=== PATIENT | female | born 1955 | race Caucasian/White ===

== ENCOUNTER 2019-04-01 19:13 | Emergency (ER) | payer BC, OTHER ==
--- NOTE | 2019-04-01 19:21 | EDM.PDOC ---
ED HPI GENERAL MEDICAL PROBLEM - General Stated Complaint: UNK Time Seen by Provider: 04/01/19 19:21 Source of Information: Reports: Patient History Limitations: Reports: No Limitations - History of Present Illness INITIAL COMMENTS - FREE TEXT/NARRATIVE: this patient comes emergency department today with complaints of left lower extremity pain. For the past week she has had swelling tightness tenderness and pain primarily the proximal aspect of her medial left calf. Just below her knee. She was seen in the clinic and sent over for an ultrasound for possible DVT and was seen in the emergency department following her clinic visit as there was no one to follow-up with her results. She's had no history of bleeding or clotting disorders for herself or her family. She does not smoke she is not on control. She has not had any recent procedures or long stents of travel in a vehicle or airplane concerning for increasing her risk for a DVT. She has had no injury fall or damage to left lower extremity. She does have some chronic left knee pain and joint effusion and does need a knee replacement. She denies any paresthesias to her lower extremity.no chest pain or shortness of breath or difficulty breathing. No syncope or palpitations. - Related Data Allergies Allergy/AdvReac Type Severity Reaction Status Date / Time No Known Allergies Allergy Verified 04/01/19 19:22 Home Meds: Home Meds Aspirin 81 mg PO ASDIRECTED 09/30/14 [History] Cholecalciferol (Vitamin D3) [Vitamin D-3] 2,000 unit PO DAILY 09/30/14 [History ] Past Medical History Other HEENT History: WEARS GLASSES Other Cardiovascular History: 5 years SINCE STROKE Other Musculoskeletal History: BUNION BILAT FEET Other Dermatologic History: BILAT LE & FEET - Past Surgical History Other Cardiovascular Surgeries/Procedures: PFO REPAIR Other Female Surgeries/Procedures: SLING OPERATION; CYSTOSCOPY Other Musculoskeletal Surgeries/Procedures:: BUNIONECTOMY LEFT FOOT; REPIAR OF HAMMER TOE LEFT FOOT ED ROS GENERAL - Review of Systems Review Of Systems: Comprehensive ROS is negative, except as noted in HPI. ED EXAM, GENERAL - Physical Exam Exam: See Below Exam Limited By: No Limitations General Appearance: Alert, WD/WN, No Apparent Distress Respiratory/Chest: No Respiratory Distress, Lungs Clear, Normal Breath Sounds Cardiovascular: Normal Peripheral Pulses, Regular Rate, Rhythm Peripheral Pulses: 2+: Popliteal (L), Popliteal (R), Posterior Tibial (L), Posterior Tibial (R), Dorsalis Pedis (L), Dorsalis Pedis (R) Extremities: Other (examination the left lower extremity shows a very swollen warm erythematous left proximal calf. There is also some superficial varicose veins that are unremarkable. There is no palpable cords. There is no breaks in the skin.) Neurological: Alert, Oriented Psychiatric: Normal Affect, Normal Mood Skin Exam: Warm, Dry, Intact Course - Vital Signs Last Recorded V/S: Last Vital Signs Temp 36.4 C 04/01/19 19:22 Pulse 69 04/01/19 20:16 Resp 18 04/01/19 20:16 BP 139/92 H 04/01/19 20:16 Pulse Ox 97 04/01/19 20:16 - Orders/Labs/Meds Labs: Laboratory Tests 04/01/19 04/01/19 04/01/19 Range/Units 19:31 19:31 19:31 WBC 9.1 (5.0-10.0) 10^3/uL RBC 4.17 L (4.2-5.4) 10^6/uL Hgb 12.9 (12.0-16.0) g/dL Hct 37.9 (37.0-47.0) % MCV 90.9 (80-100) fL MCH 30.9 (27.0-34.0) pg MCHC 34.0 (33.0-35.0) g/dL Plt Count 177 (150-450) 10^3/uL Neut % (Auto) 69.3 (42.2-75.2) % Lymph % (Auto) 18.8 L (20.5-50.1) % Kerr % (Auto) 9.6 H (2-8) % Eos % (Auto) 2.1 (1.0-3.0) % Baso % (Auto) 0.2 (0.0-1.0) % PT 10.2 (9.0-12.0) SEC INR 1.0 (0.9-1.2) APTT 25.0 (22.0-34.0) SEC Sodium 138 (135-145) mmol/L Potassium 4.4 (3.6-5.0) mmol/L Chloride 103 (101-111) mmol/L Carbon Dioxide 28.0 (21.0-31.0) mmol/L Anion Gap 11.4 BUN 23 H (7-18) mg/dL Creatinine 1.0 (0.6-1.3) mg/dL Est Cr Clr Drug Dosing 52.50 mL/min Estimated GFR (MDRD) 56 Glucose 96 (74-105) mg/dL Calcium 9.4 (8.4-10.2) mg/dl Meds: Medications Discontinued Medications Generic Name Dose Route Start Last Admin Trade Name Bita PRN Reason Stop Dose Admin Rivaroxaban 15 mg 04/01/19 20:29 04/01/19 20:36 Xarelto PO 04/01/19 20:30 15 mg ONETIME ONE Administration - Radiology Interpretation Free Text/Narrative:: ultrasound per radiology no visible deep venous thrombosis on either side. There is visible clot in the proximal left greater saphenous vein just distal to the saphenous femoral junction. This represents superficial venous thrombosis there is also clot noted in the gastrocnemius veins on the left. May be subacute or even chronic this represents superficial venous thrombosis there is absent blood flow within these venous branches showing clot. Small left knee joint effusion - Re-Assessments/Exams Free Text/Narrative Re-Assessment/Exam: 04/01/19 20:31 patient's laboratory evaluation are unremarkable. This is an unprovoked superficial venous thrombosis. Although this is very near the saphenous femoral junction and when reviewing this through up to date it is recommended for anticoagulation therapy even for the superficial venous thrombosis due to the location. 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 Risk of anti-coagulation were discussed with the patient and she has no identified risk factors for anti-coagulation at this time. She is comfortable with this plan and her questions answered. Departure - Departure Time of Disposition: 20:24 Disposition: Home, Self-Care 01 Clinical Impression: Acute superficial venous thrombosis of left lower extremity - Discharge Information Instructions: Venous Thromboembolism Prevention Forms: ED Department Discharge Additional Instructions: Keep the leg elevated. Ambulation is a good thing. Consider compression if comfortable. Xarelto 15mg by mouth twice daily for the next 21 days. First dose given in the ED and RX given to the patient. extermination supervisor decision about anti-coagulation will be made between you and your PCP. Contact your PCP tomorrow who you saw today and let them know the results and the plan. They will need to recheck with you in the next few weeks. Return to the ED if new or worsening symptoms. Sepsis Event Note - Focused Exam Vital Signs: Vital Signs Temp Pulse Resp BP Pulse Ox 04/01/19 20:16 69 18 139/92 H 97 04/01/19 19:22 36.4 C 83 18 174/87 H Date Exam was Performed: 04/01/19 Time Exam was Performed: 20:45 - Assessment/Plan Assessment:: Superficial venous thrombus near the saphenous femoral junction. Plan: Keep the leg elevated. Ambulation is a good thing. Consider compression if comfortable. Xarelto 15mg by mouth twice daily for the next 21 days. First dose given in the ED and RX given to the patient. extermination supervisor decision about anti-coagulation will be made between you and your PCP. Contact your PCP tomorrow who you saw today and let them know the results and the plan. They will need to recheck with you in the next few weeks. Return to the ED if new or worsening symptoms.
[2019-04-01 19:54] LABS: ANION GAP 11.4
[2019-04-01 20:16] VITALS: BP 139/92; PULSE 69
[2019-04-01] MEDS ORDERED: Rivaroxaban 10 MG Tab PO ONE (20:29)
== END 2019-04-01 20:37 | disposition home or self-care (01) ==
LOC: DL.ED 19:13
DX: I82.812 Embolism and thrombosis of superficial veins of left lower extremity (principal); Z79.82 Long term (current) use of aspirin
CPT/HCPCS: 36415; 80048; 85025; 85610; 85730; 99283; A9270

== ENCOUNTER 2019-04-19 15:45 | Emergency (ER) | payer BC ==
[2019-04-19 16:48] VITALS: BP 144/86; PULSE 90
--- NOTE | 2019-04-19 17:39 | EDM.PDOC ---
Scribed by Amaya Adams 04/19/19 [id number] for Madison Kang NP ED HPI GENERAL MEDICAL PROBLEM - General Chief Complaint: Lower Extremity Injury/Pain Stated Complaint: LEG HURTING Time Seen by Provider: 04/19/19 17:15 Source of Information: Reports: Patient, RN, RN Notes Reviewed History Limitations: Reports: No Limitations - History of Present Illness INITIAL COMMENTS - FREE TEXT/NARRATIVE: Patient is a 64-year-old female who presents to ER with left behind the knee pain x8 hours ago. She reports being diagnosed with DVT three weeks ago and she is on Xarelto 15 mg b.i.d. Reports pain began when she came to the clinic for medication management. Pain is described as a sore and rate as a 5/10 when standing and 0 when sitting. Pain is nonradiating. She has not tried anything for her symptoms. No fevers, chills, shortness of breath or chest pain. No trauma or fall or injury to the left knee. Onset: Gradual Left Knee Pain Score (Numeric/FACES): 5 - Related Data Allergies Allergy/AdvReac Type Severity Reaction Status Date / Time No Known Allergies Allergy Verified 04/19/19 16:48 Home Meds: Home Meds Rivaroxaban [Xarelto] 15 mg PO BID 04/19/19 [History] Past Medical History Other HEENT History: WEARS GLASSES Other Cardiovascular History: 5 years SINCE STROKE Respiratory History: Reports: None Gastrointestinal History: Reports: None Genitourinary History: Reports: None COLLAR SEPARATOR History: Reports: None Other Musculoskeletal History: BUNION BILAT FEET Neurological History: Reports: None Psychiatric History: Reports: None Endocrine/Metabolic History: Reports: None Hematologic History: Reports: None Immunologic History: Reports: None Oncologic (Cancer) History: Reports: None Dermatologic History: Reports: None Other Dermatologic History: BILAT LE & FEET - Infectious Disease History Infectious Disease History: Reports: Chicken Pox, Measles, Mumps - Past Surgical History Head Surgeries/Procedures: Reports: None Other Cardiovascular Surgeries/Procedures: PFO REPAIR Other Female Surgeries/Procedures: SLING OPERATION; CYSTOSCOPY Other Musculoskeletal Surgeries/Procedures:: BUNIONECTOMY LEFT FOOT; REPIAR OF HAMMER TOE LEFT FOOT , knee surgury 07/23/1916 Social & Family History - Tobacco Use Smoking Status *Q: Never Smoker Second Hand Smoke Exposure: No - Caffeine Use Caffeine Use: Reports: Coffee - Recreational Drug Use Recreational Drug Use: No Review of Systems - Review of Systems Review Of Systems: Comprehensive ROS is negative, except as noted in HPI. ED EXAM, GENERAL - Physical Exam Exam: See Below Exam Limited By: No Limitations General Appearance: Alert, WD/WN, No Apparent Distress Respiratory/Chest: No Respiratory Distress, Lungs Clear, Normal Breath Sounds, No Accessory Muscle Use, Chest Non-Tender Extremities: Normal Range of Motion, Non-Tender, Normal Capillary Refill, Other (Mild pain with palpation behind the left knee. Mild erythema noted on the calf. 1+ nonpitting edema noted on the left lower extremity. ). No: Uzma's Sign Course - Vital Signs Last Recorded V/S: Last Vital Signs Temp 98.1 F 04/19/19 16:39 Pulse 90 04/19/19 16:39 Resp 16 04/19/19 16:39 BP 144/86 H 04/19/19 16:39 Pulse Ox 100 04/19/19 16:39 - Orders/Labs/Meds Orders: Active Orders 24 hr Category Date Time Status Knee 3V Lt [CR] Urgent Exams 04/19/19 17:07 Stop Req - Re-Assessments/Exams Free Text/Narrative Re-Assessment/Exam: Reviewed exam findings with the patient. She is currently on Xarelto which is appropriate treatment for DVT. She has an ultrasound scheduled for tomorrow morning at 11:00 A.M. Current treatment is appropriate at this time. She will follow up in the morning with her scheduled ultrasound. Patient was in agreement to this time and verbalized understanding. Departure - Departure Time of Disposition: 17:35 Disposition: Home, Self-Care 01 Condition: Good Clinical Impression: Acute superficial venous thrombosis of left lower extremity - Discharge Information Instructions: Deep Vein Thrombosis Forms: ED Department Discharge Additional Instructions: Continue Xarelto as prescribed. Follow up with ultrasound as scheduled. Elevate left lower extremity when lying or sitting down. Sepsis Event Note - Evaluation Sepsis Screening Result: No Definite Risk - Focused Exam Vital Signs: Vital Signs Temp Pulse Resp BP Pulse Ox 04/19/19 16:39 98.1 F 90 16 144/86 H 100 Date Exam was Performed: 04/19/19 Time Exam was Performed: 17:39 - My Orders Last 24 Hours: My Active Orders 04/19/19 17:07 Knee 3V Lt [CR] Urgent - Assessment/Plan Last 24 Hours: My Active Orders 04/19/19 17:07 Knee 3V Lt [CR] Urgent I have read and agree with the documentation that has been completed regarding this visit. By signing this record, I attest that the documentation was completed in my physical presence and is an accurate record of the encounter.
== END 2019-04-19 17:51 | disposition home or self-care (01) ==
LOC: DL.ED 15:45
DX: I82.812 Embolism and thrombosis of superficial veins of left lower extremity (principal); Z79.01 Long term (current) use of anticoagulants
CPT/HCPCS: 99283-25

== ENCOUNTER 2022-08-08 05:58 | Day surgery (SDC) | payer BC ==
[~2022-08-08 05:58] MED LIST: Dextrose 5%-0.45% NaCl 1,000 ML IV SCH; Sodium Chloride 0.9% 10 ML Syringe FLUSH PRN; Sodium Chloride 0.9% 10 ML Syringe FLUSH SCH
[2022-08-08] MEDS ORDERED: Dextrose 5%-0.45% NaCl 1,000 ML IV SCH (06:00)
[2022-08-08] MEDS ORDERED: Midazolam 1 MG/ML 2 ML SDV ONE (06:52)
[2022-08-08] MEDS ORDERED: Midazolam 1 MG/ML 2 ML SDV IV ONE ×7 (06:53→07:06)
[2022-08-08] MEDS ORDERED: fentaNYL 100 MCG/2 ML SDV ONE (06:53)
[2022-08-08] MEDS ORDERED: fentaNYL 100 MCG/2 ML SDV IV ONE ×5 (06:53→07:07)
[2022-08-08 07:58] VITALS: BP 116/72; PULSE 56
== END 2022-08-08 08:28 | disposition home or self-care (01) ==
LOC: DL.ENDO 05:58
PROVIDERS: ATTEND Internal Medicine Gastroenterology
DX: Z12.11 Encounter for screening for malignant neoplasm of colon (principal); Z98.890 Other specified postprocedural states; Z90.710 Acquired absence of both cervix and uterus; Z86.73 Personal history of transient ischemic attack (TIA), and cerebral infarction without residual deficits
CPT/HCPCS: J2250; J3010; J7042